=== PATIENT | female | born 1985 | race Caucasian/White ===

== ENCOUNTER 2020-02-04 18:35 | Emergency (ER) | payer MEDICAID ==
[2020-02-04] MEDS ORDERED: Sodium Chloride 0.9% 2.5 ML Syringe FLUSH PRN (18:51)
[2020-02-04] MEDS ORDERED: Sodium Chloride 0.9% 10 ML Syringe FLUSH PRN (18:51)
[2020-02-04] MEDS ORDERED: Ondansetron 4 MG/2 ML SDV IVPUSH ONE (18:51)
[2020-02-04] MEDS ORDERED: Sodium Chloride 0.9% 1,000 ML IV ONE (18:51)
--- NOTE | 2020-02-04 19:11 | EDM.PDOC ---
ED HPI GENERAL MEDICAL PROBLEM - General Chief Complaint: Abdominal Pain Stated Complaint: ABDOMINAL PAIN Time Seen by Provider: 02/04/20 18:46 Source of Information: Reports: Patient History Limitations: Reports: No Limitations - History of Present Illness INITIAL COMMENTS - FREE TEXT/NARRATIVE: HISTORY AND PHYSICAL: History of present illness: Patient is a 34-year-old female who presents to the emergency room with complaints of generalized abdominal pain and nausea x1 month. Pain moves around, states "one day is here (LUQ) another is down here (pelvis)", currently has pain in all 4 quadrants with generalized tenderness. She believes she has missed her period over the past 1.5 month, concerned she may be although has not taking any tests at home. She is a 2, para 2 (both C-sections 14/15 years ago). Patient denies any fever, chills, headache, change in vision, syncope or near syncope. Denies any chest pain, back pain, shortness of breath or cough. Denies any vomiting, diarrhea, constipation or dysuria. Has not noted any blood in urine or stool. Denies any vaginal bleeding, discharge or concerns of STDs. Patient has been eating and drinking appropriately. Review of systems: As per history of present illness and below otherwise all systems reviewed and negative. Past medical history: As per history of present illness and as reviewed below otherwise noncontributory. Surgical history: As per history of present illness and as reviewed below otherwise noncontributory. Social history: See social history for further information Family history: As per history of present illness and as reviewed below otherwise noncontributory. Physical exam: General: Well developed and well nourished. Alert and orientated x 3. Nontoxic in appearance and in no acute distress. Vital signs are stable and have been reviewed by me. Nursing notes were reviewed. HEENT: Atraumatic, normocephalic, pupils equal and reactive bilaterally, negative for conjunctival pallor or scleral icterus, mucous membranes moist, trachea midline. No drooling or trismus noted. No meningeal signs. No hot potato voice noted. Lungs: Clear to auscultation, breath sounds equal bilaterally, chest nontender. Normal work of breathing, no accessory muscles used. Heart: S1S2, regular rate and rhythm without overt murmur Abdomen: Soft, obese with generalized tenderness in all 4 quadrants. Negative for masses or hepatosplenomegaly. Negative for costovertebral tenderness. Pelvis: Stable nontender. Skin: Intact, warm, dry. No lesions or rashes noted. Hematologic: No petechiae or purpra. Mucosa appropriate color and normal nail bed color and refill. Extremities: Atraumatic, moves all extremities per self without difficulty or deficits, negative for cords or calf pain. Neurovascular unremarkable. Neuro: Awake, alert, oriented. Cranial nerves II through XII unremarkable. Cerebellum unremarkable. Motor and sensory unremarkable throughout. Exam nonfocal. Psychiatric: Mood and affect are appropriate. Normal thought process. Answering questions appropriately. Notes: Patient does have a slight leukocytosis, is negative. I will do a CT of the abdomen and pelvis as she is very vague and generalized with her abdominal pain. Her initial urine sample was not adequate to do a urinalysis on, she has not been able to provide a second urine. CT of the abdomen and pelvis shows no significant findings. The appendix is not clearly visualized although there are no inflammatory changes surrounding the cecum in the right lower quadrant. I have spoken with the patient/caregiver and discussed today's findings, in addition to providing specific details for plan of care. Reassessment at the time of disposition demonstrates that the patient is in no acute distress. The patient has remained stable throughout the entire ED visit and is without objective evidence for acute process requiring urgent intervention or hospitalization. The patient is stable for discharge, counseling was provided and we discussed in great detail signs and symptoms that would prompt them to return to the Emergency Department. Medication, follow up and supportive care measures were reviewed and discussed. Voices understanding and is agreeable to plan of care. Denies any further questions or concerns at this time. Diagnostics: CBC, CMP, UA, HCGU, ABD/PELVIS CT Therapeutics: IV fluids, Zofran, Morphine Prescription: None Impression: Abdominal Pain Plan: 1. Today your lab work and CT scan were within normal limits. If your pain continues you should follow-up with a general surgeon who can think/evaluation. 2. Alternate Tylenol and Ibuprofen as needed for pain. Increase your fluids. 3. We encourage you to follow up with your primary care provider and/or General surgeon in the next few days for re-evaluation and further care/management. If your symptoms should worsen, new symptoms develop or any of the signs and symptoms we discussed should arise please return to the emergency room or call 911 (if needed). Definitive disposition and diagnosis as appropriate pending reevaluation and review of above. left abdomen, lower abdomen, lower back, L rib cage Pain Score (Numeric/FACES): 8 - Related Data Allergies Allergy/AdvReac Type Severity Reaction Status Date / Time bismuth subsalicylate Allergy Vomiting Verified 02/04/20 18:46 [From Pepto-Bismol] ibuprofen Allergy Abdominal Verified 02/04/20 18:46 Pain Penicillins Allergy Anaphylactic Verified 02/04/20 18:46 Shock Home Meds: Home Meds . 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 ED EXAM, GI/ABD - Physical Exam Exam: See Below (See dictation) Course - Vital Signs Last Recorded V/S: Last Vital Signs Temp 96.8 F L 02/04/20 18:43 Pulse 100 02/04/20 19:35 Resp 18 02/04/20 19:35 BP 146/87 H 02/04/20 19:35 Pulse Ox 98 02/04/20 19:35 - Orders/Labs/Meds Orders: Active Orders 24 hr Category Date Time Status Sodium Chloride 0.9% [Saline Flush] Med 02/04/20 18:51 Active 10 ml FLUSH ASDIRECTED PRN Sodium Chloride 0.9% [Saline Flush] Med 02/04/20 18:51 Active 2.5 ml FLUSH ASDIRECTED PRN Saline Lock Insert [OM.PC] Stat Oth 02/04/20 18:51 Ordered Medication Orders Sodium Chloride (Saline Flush) 10 ml FLUSH ASDIRECTED PRN PRN Reason: Keep Vein Open Last Admin: 02/04/20 19:31 Dose: 10 ml Documented by: MURDNIC Sodium Chloride (Saline Flush) 2.5 ml FLUSH ASDIRECTED PRN PRN Reason: Keep Vein Open Last Admin: 02/04/20 19:31 Dose: 2.5 ml Documented by: KIARA Labs: Laboratory Tests 02/04/20 02/04/20 02/04/20 Range/Units 19:06 19:23 19:23 WBC 12.96 H (4.0-11.0) K/uL RBC 5.14 (4.30-5.90) M/uL Hgb 12.9 (12.0-16.0) g/dL Hct 41.9 (36.0-46.0) % MCV 81.5 (80.0-98.0) fL MCH 25.1 L (27.0-32.0) pg MCHC 30.8 L (31.0-37.0) g/dL RDW Std Deviation 47.2 (28.0-62.0) fl RDW Coeff of Christopher 16 H (11.0-15.0) % Plt Count 351 (150-400) K/uL MPV 9.60 (7.40-12.00) fL Neut % (Auto) 67.5 (48.0-80.0) % Lymph % (Auto) 19.9 (16.0-40.0) % [place] % (Auto) 9.6 (0.0-15.0) % Eos % (Auto) 2.5 (0.0-7.0) % Baso % (Auto) 0.5 (0.0-1.5) % Neut # (Auto) 8.8 H (1.4-5.7) K/uL Lymph # (Auto) 2.6 H (0.6-2.4) K/uL [place] # (Auto) 1.2 H (0.0-0.8) K/uL Eos # (Auto) 0.3 (0.0-0.7) K/uL Baso # (Auto) 0.1 (0.0-0.1) K/uL Nucleated RBC % 0.0 /100WBC Nucleated RBCs # 0 K/uL Sodium 138 (136-145) mmol/L Potassium 4.1 (3.5-5.1) mmol/L Chloride 102 (98-107) mmol/L Carbon Dioxide 25.8 (21.0-32.0) mmol/L BUN 14 (7.0-18.0) mg/dL Creatinine 0.7 (0.6-1.0) mg/dL Est Cr Clr Drug Dosing 92.79 mL/min Estimated GFR (MDRD) > 60.0 ml/min Glucose 103 (74-106) mg/dL Calcium 9.2 (8.5-10.1) mg/dL Total Bilirubin 0.2 (0.2-1.0) mg/dL AST 27 (15-37) IU/L ALT 43 (14-63) IU/L Alkaline Phosphatase 92 (46-116) U/L Total Protein 8.4 H (6.4-8.2) g/dL Albumin 3.7 (3.4-5.0) g/dL Globulin 4.7 H (2.6-4.0) g/dL Albumin/Globulin Ratio 0.8 L (0.9-1.6) Lipase 96 (73-393) U/L Urine Color Urine Appearance Urine pH (5.0-8.0) Ur Specific [place] (1.001-1.035) Urine Protein (NEGATIVE) mg/dL Urine Glucose (UA) (NEGATIVE) mg/dL Urine Ketones (NEGATIVE) mg/dL Urine Occult Blood (NEGATIVE) Urine Nitrite (NEGATIVE) Urine Bilirubin (NEGATIVE) Urine Urobilinogen (<2.0) EU/dL Ur Leukocyte Esterase (NEGATIVE) Urine HCG, Qual NEGATIVE (NEGATIVE) 02/04/20 Range/Units 21:20 WBC (4.0-11.0) K/uL RBC (4.30-5.90) M/uL Hgb (12.0-16.0) g/dL Hct (36.0-46.0) % MCV (80.0-98.0) fL MCH (27.0-32.0) pg MCHC (31.0-37.0) g/dL RDW Std Deviation (28.0-62.0) fl RDW Coeff of Christopher (11.0-15.0) % Plt Count (150-400) K/uL MPV (7.40-12.00) fL Neut % (Auto) (48.0-80.0) % Lymph % (Auto) (16.0-40.0) % [place] % (Auto) (0.0-15.0) % Eos % (Auto) (0.0-7.0) % Baso % (Auto) (0.0-1.5) % Neut # (Auto) (1.4-5.7) K/uL Lymph # (Auto) (0.6-2.4) K/uL [place] # (Auto) (0.0-0.8) K/uL Eos # (Auto) (0.0-0.7) K/uL Baso # (Auto) (0.0-0.1) K/uL Nucleated RBC % /100WBC Nucleated RBCs # K/uL Sodium (136-145) mmol/L Potassium (3.5-5.1) mmol/L Chloride (98-107) mmol/L Carbon Dioxide (21.0-32.0) mmol/L BUN (7.0-18.0) mg/dL Creatinine (0.6-1.0) mg/dL Est Cr Clr Drug Dosing mL/min Estimated GFR (MDRD) ml/min Glucose (74-106) mg/dL Calcium (8.5-10.1) mg/dL Total Bilirubin (0.2-1.0) mg/dL AST (15-37) IU/L ALT (14-63) IU/L Alkaline Phosphatase (46-116) U/L Total Protein (6.4-8.2) g/dL Albumin (3.4-5.0) g/dL Globulin (2.6-4.0) g/dL Albumin/Globulin Ratio (0.9-1.6) Lipase (73-393) U/L Urine Color YELLOW Urine Appearance CLEAR Urine pH 5.5 (5.0-8.0) Ur Specific [place] 1.010 (1.001-1.035) Urine Protein NEGATIVE (NEGATIVE) mg/dL Urine Glucose (UA) NEGATIVE (NEGATIVE) mg/dL Urine Ketones NEGATIVE (NEGATIVE) mg/dL Urine Occult Blood NEGATIVE (NEGATIVE) Urine Nitrite NEGATIVE (NEGATIVE) Urine Bilirubin NEGATIVE (NEGATIVE) Urine Urobilinogen 0.2 (<2.0) EU/dL Ur Leukocyte Esterase NEGATIVE (NEGATIVE) Urine HCG, Qual (NEGATIVE) Meds: Medications Generic Name Dose Route Start Last Admin Trade Name Freq PRN Reason Stop Dose Admin Sodium Chloride 10 ml 02/04/20 18:51 02/04/20 19:31 Saline Flush FLUSH 10 ml ASDIRECTED PRN Administration Keep Vein Open Sodium Chloride 2.5 ml 02/04/20 18:51 02/04/20 19:31 Saline Flush FLUSH 2.5 ml ASDIRECTED PRN Administration Keep Vein Open Discontinued Medications Generic Name Dose Route Start Last Admin Trade Name Freq PRN Reason Stop Dose Admin Sodium Chloride 1,000 mls @ 999 mls/hr 02/04/20 18:51 02/04/20 19:31 Normal Saline IV 02/04/20 19:51 999 mls/hr STAT ONE Administration Iopamidol 100 ml 02/04/20 20:29 02/04/20 20:29 Isovue Multipack-370 (76%) IVPUSH 02/04/20 20:30 100 ml ONETIME STA Administration Morphine Sulfate 4 mg 02/04/20 19:51 02/04/20 20:18 Morphine IVPUSH 02/04/20 19:52 4 mg ONETIME ONE Administration Ondansetron HCl 4 mg 02/04/20 18:51 02/04/20 19:31 Zofran IVPUSH 02/04/20 18:52 4 mg ONETIME ONE Administration Departure - Departure Time of Disposition: 21:29 Disposition: Home, Self-Care 01 Clinical Impression: Abdominal pain Qualifiers: Abdominal location: generalized Qualified Code(s): R10.84 - Generalized abdominal pain - Discharge Information Instructions: Abdominal Pain, Adult Referrals: PCP,None [Primary Care Provider] - Forms: ED Department Discharge Additional Instructions: The following information is given to patients seen in the emergency department who are being discharged to home. This information is to outline your options for follow-up care. We provide all patients seen in our emergency department with a follow-up referral. The need for follow-up, as well as the timing and circumstances, are variable depending upon the specifics of your emergency department visit. If you don't have a primary care physician on staff, we will provide you with a referral. We always advise you to contact your personal physician following an emergency department visit to inform them of the circumstance of the visit and for follow-up with them and/or the need for any referrals to a consulting specialist. The emergency department will also refer you to a specialist when appropriate. This referral assures that you have the opportunity for follow-up care with a specialist. All of these measure are taken in an effort to provide you with optimal care, which includes your follow-up. Under all circumstances we always encourage you to contact your private physician who remains a resource for coordinating your care. When calling for follow-up care, please make the office aware that this follow-up is from your recent emergency room visit. If for any reason you are refused follow-up, please contact the [facility] at and asked to speak to the emergency department charge nurse. [facility] [address] [place] [id number] [facility] [address] [place] [id number] Thank you for choosing the [facility] emergency department in [place] for your medical needs today. It was a pleasure caring for you. Today you were seen in the emergency department for abdominal pain. 1. Today your lab work and CT scan were within normal limits. If your pain continues you should follow-up with a general surgeon who can think/evaluation. 2. Alternate Tylenol and Ibuprofen as needed for pain. Increase your fluids. 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 3. We encourage you to follow up with your primary care provider and/or General surgeon in the next few days for re-evaluation and further care/management. If your symptoms should worsen, new symptoms develop or any of the signs and symptoms we discussed should arise please return to the emergency room or call 911 (if needed). Sepsis Event Note (ED) - Evaluation Sepsis Screening Result: No Definite Risk - Focused Exam Vital Signs: Vital Signs Temp Pulse Resp BP Pulse Ox 02/04/20 19:35 100 18 146/87 H 98 02/04/20 18:43 96.8 F L 110 H 20 149/92 H 97 - My Orders Last 24 Hours: My Active Orders 02/04/20 18:51 Sodium Chloride 0.9% [Saline Flush] 10 ml FLUSH ASDIRECTED PRN Sodium Chloride 0.9% [Saline Flush] 2.5 ml FLUSH ASDIRECTED PRN Saline Lock Insert [OM.PC] Stat - Assessment/Plan Last 24 Hours: My Active Orders 02/04/20 18:51 Sodium Chloride 0.9% [Saline Flush] 10 ml FLUSH ASDIRECTED PRN Sodium Chloride 0.9% [Saline Flush] 2.5 ml FLUSH ASDIRECTED PRN Saline Lock Insert [OM.PC] Stat
[2020-02-04] MEDS ORDERED: Morphine 4 MG/ML Syringe IVPUSH ONE (19:51)
[2020-02-04 19:56] LABS: BLOOD UREA NITROGEN,BUN 14 mg/dL (7.0-18.0); CARBON DIOXIDE,CO2 25.8 mmol/L (21.0-32.0); CHLORIDE,CL 102 mmol/L (98-107); GLUCOSE RANDOM 103 mg/dL (74-106); LIPASE 96 U/L (73-393); POTASSIUM,K 4.1 mmol/L (3.5-5.1); SODIUM,NA 138 mmol/L (136-145)
[2020-02-04] MEDS ORDERED: Iopamidol 755 MG/ML 500 ML Multipack Bottle IVPUSH STA (20:29)
--- NOTE | 2020-02-04 20:51 | CT ---
INDICATION: Generalized abdominal pain. COMPARISON: None. TECHNIQUE: CT abdomen and pelvis with intravenous contrast; coronal and sagittal reformats. FINDINGS: No abnormal intra pulmonary nodular densities through the lung bases. No evidence of pleural effusion. Normal size cardiac silhouette without any evidence of pericardial effusion. No focal hepatic or splenic pathology. No pancreatic pathology. Gallbladder is unremarkable. No adrenal pathology. No kidney stones or obstructive uropathy. No retroperitoneal lymphadenopathy. No evidence of abdominal or pelvic ascites. Redundant sigmoid colon. No pneumoperitoneum or intestinal obstruction. The appendix is not clearly visualized; no inflammatory changes surrounding the cecum in the right lower quadrant of the abdomen. Impression : 1. Appendix is not clearly visualized; no inflammatory changes surrounding the cecum. 2. No kidneys stones or obstructive uropathy. 3. Negative CT abdomen and pelvis with intravenous contrast otherwise. Please note that all CT scans at this facility use dose modulation, iterative reconstruction, and/or weight-based dosing when appropriate to reduce radiation dose to as low as reasonably achievable. Dictated by Pam Galindo MD @ Feb 04 2020 8:43PM Signed by Dr. Pam Galindo @ Feb 04 2020 8:50PM
== END 2020-02-04 21:54 | disposition home or self-care (01) ==
LOC: MW.ED 18:35
DX: R10.84 Generalized abdominal pain (principal); R11.0 Nausea; E66.9 Obesity, unspecified; Z88.0 Allergy status to penicillin; Z88.6 Allergy status to analgesic agent; Z88.8 Allergy status to other drugs, medicaments and biological substances; Z98.51 Tubal ligation status; Z68.35 Body mass index [BMI] 35.0-35.9, adult
CPT/HCPCS: 36415; 74177; 80053; 81003; 81025; 83690; 85025; 96374; 96375; 99284; J2270; J2405; J7030; Q9967; 99283